=== PATIENT | male | born 1950 | race Caucasian/White ===

== ENCOUNTER → 2018-01-09 | Outpatient (CLI) | payer MEDICARE | END | disposition home or self-care (01) | LOC: PLD 09:48 → LAB SHORT 09:48 | DX: D22.5 Melanocytic nevi of trunk (principal) | CPT/HCPCS: 88305 ==

== ENCOUNTER → 2018-01-22 | Outpatient (CLI) | payer MEDICARE | END | disposition home or self-care (01) | LOC: LAB SHORT 07:15 → PLD 07:15 | DX: D48.5 Neoplasm of uncertain behavior of skin (principal) | CPT/HCPCS: 88305 ==

== ENCOUNTER 2020-10-21 07:52 | Day surgery (SDC) | payer MEDICARE ==
[~2020-10-21] VITALS: Ht 172.7 cm; Wt 78.3 kg
[~2020-10-21 07:52] MED LIST: ATOR10 PO
== END 2020-10-21 09:54 | disposition home or self-care (01) ==
LOC: ORSCSDS 07:52
PROVIDERS: Internal Medicine Gastroenterology
PROC: 0DBL8ZX Excision of Transverse Colon, Via Natural or Artificial Opening Endoscopic, Diagnostic (ICD-10-PCS; principal; 2020-10-21 09:00)
DX: Z12.11 Encounter for screening for malignant neoplasm of colon (principal); D12.3 Benign neoplasm of transverse colon; Z86.010 Personal history of colon polyps; E78.5 Hyperlipidemia, unspecified; K57.30 Diverticulosis of large intestine without perforation or abscess without bleeding; K64.8 Other hemorrhoids
CPT/HCPCS: 88305; J2405; J2704; J7120